=== PATIENT | female | born 1950 | race Caucasian/White ===

== ENCOUNTER → 2021-04-01 | Outpatient (REF) | payer MEDICARE ==
[~2021-04-01] MED LIST: CYCL-707 PO; LIDO5DIS41 TD; LISI10TA22 PO; PANT40TA29 PO; TOLTERODINE TARTRATE PO; ULTR37.54 PO
== END ==
LOC: M LAB REF 16:27
PROVIDERS: ATTEND Nurse Practitioner Adult Health
DX: R20.8 Other disturbances of skin sensation (principal)